=== PATIENT | male | born 1945 | race Caucasian/White ===

== ENCOUNTER 2023-02-21 12:32 | Emergency (ER) | payer OTHER ==
[~2023-02-21] VITALS: Ht 177.8 cm; Wt 86.2 kg
[2023-02-21 18:20] VITALS: BP 134/65
[2023-02-21] MEDS ORDERED: BENZ200C53 PO (18:24)
== END 2023-02-21 18:40 | disposition home or self-care (01) ==
LOC: EDH 12:32
DX: J06.9 Acute upper respiratory infection, unspecified (principal); R05.9 Cough, unspecified; E11.9 Type 2 diabetes mellitus without complications; E78.00 Pure hypercholesterolemia, unspecified; Z86.19 Personal history of other infectious and parasitic diseases; Z95.1 Presence of aortocoronary bypass graft; Z98.890 Other specified postprocedural states
CPT/HCPCS: 99285; 71045; 87635; 87804 ×2; 93005; C9803